=== PATIENT | male | born 1965 | race Caucasian/White ===

== ENCOUNTER 2020-12-27 13:53 | Emergency (ER) | payer MEDICAID ==
[~2020-12-27] VITALS: Ht 172.7 cm; Wt 78.7 kg
[2020-12-27 13:58] VITALS: BP 127/79
--- NOTE | 2020-12-27 15:12 | NUR ---
IN TO SEE PT HE STATES HE IS HERE FOR "WITHDRAWL FROM [facility]" PT STATES HE WAS TAKING KLONIPIN IN SEPTEMBER WHEN HE WAS DX WITH COVID. PT STATES THEY WERE NOT PERSCRIBED TO HIM. HE STATES HE WAS TAKING 1 Q 3-4 DAYS. HE THEN "STARTED TO TAPER" ON HIS OWN AND WAS TAKING 1 EVERY DAY. LAST DOSE 25 DAYS AGO. PT WAS SEEN BY A PMD AND RX FOR GABAPENTIN X2 WEEKS. PT STATES HE WAS STARTED ON HYDROXIZINE, CLONIDINE, AND BUSPAR LAST NIGHT
[2020-12-27] MEDS ORDERED: OLANZapine 2.5MG tablet PO ONE (15:30)
[2020-12-27] MEDS ORDERED: famotidine 20mg tablet PO ONE (15:30)
[2020-12-27] MEDS ORDERED: LORazepam 1 MG tablet PO ONE (15:30)
== END 2020-12-27 15:48 | disposition home or self-care (01) ==
LOC: ER 13:53
DX: G47.00 Insomnia, unspecified (principal); F41.9 Anxiety disorder, unspecified; Z88.0 Allergy status to penicillin
CPT/HCPCS: 99281